=== PATIENT | male | born 1970 ===

== ENCOUNTER 2017-03-21 08:49 | Emergency (ER) | payer OTHER ==
[2017-03-21 09:02] VITALS: TEMP 98.9; O2SAT 98
--- NOTE | 2017-03-21 10:19 | C.PDOC ---
Time Seen by Provider: 03/21/17 09:27 Chief Complaint (Nursing): Back Pain History Per: Patient Onset/Duration Of Symptoms: Days (1) Current Symptoms Are (Timing): Still Present Quality Of Discomfort: "Pain" Severity: Moderate Previous Symptoms: Back Pain Associated Symptoms: None Exacerbating Factor(s): Movement Additional History Per: Prior Records Past Medical History Reviewed: Historical Data, Nursing Documentation, Vital Signs Vital Signs: Last Vital Signs Temp 98.9 F 03/21/17 09:00 Pulse 79 03/21/17 09:00 Resp 18 03/21/17 09:00 BP 120/78 03/21/17 09:00 Pulse Ox 98 03/21/17 09:00 - Medical History PMH: No Chronic Diseases Surgical History: No Surg Hx - [facility] Procedures CLOSURE SKIN & SUBCUTANEOUS NEC (12/01/12) Family History: States: Unknown Family Hx - Social History Hx Tobacco Use: No Hx Alcohol Use: No Hx Substance Use: No - Immunization History Hx Tetanus Toxoid Vaccination: No Hx Influenza Vaccination: No Hx Pneumococcal Vaccination: No Review Of Systems Except As Marked, All Systems Reviewed And Found Negative. Constitutional: Negative for: Fever, Weakness Cardiovascular: Negative for: Chest Pain Respiratory: Negative for: Shortness of Breath Gastrointestinal: Negative for: Vomiting, Abdominal Pain Genitourinary: Negative for: Dysuria, Incontinence, Hematuria Musculoskeletal: Positive for: Back Pain. Negative for: Neck Pain, Leg Pain Skin: Negative for: Rash Neurological: Negative for: Weakness, Numbness Physical Exam - Physical Exam Appears: Non-toxic, No Acute Distress Skin: Normal Color, Warm, Dry, No Rash Head: Atraumatic, Normacephalic Eye(s): bilateral: Normal Inspection, PERRL, EOMI Neck: Normal ROM, Supple Cardiovascular: Rhythm Regular Respiratory: Normal Breath Sounds, No Accessory Muscle Use Gastrointestinal/Abdominal: Soft, No Tenderness Back: No CVA Tenderness, No Vertebral Tenderness, Paraspinal Tenderness Extremity: Normal ROM Neurological/Psych: Oriented x3, Normal Motor, Normal Sensation ED Course And Treatment O2 Sat by Pulse Oximetry: 98 Pulse Ox Interpretation: Normal Reassessment Condition: Improved Disposition Counseled Patient/Family Regarding: Diagnosis, Need For Followup, Rx Given - Disposition Referrals: [facility] [Outside] Disposition: HOME/ ROUTINE Disposition Time: :20 Condition: IMPROVED Additional Instructions: Follow up in the clinic for further evaluation and treatment. Return to the ER if you develop weakness, numbness, abdominal pain, trouble urinating, worsening of symptoms or if you have any other concerns. Prescriptions: Cyclobenzaprine [Cyclobenzaprine HCl] 10 mg PO TID PRN #15 tab PRN Reason: Muscle Spasm Naproxen [Naprosyn] 1 tab PO BID PRN #20 tab PRN Reason: Pain Instructions: Back Pain (ED) Print Language: BULGARIAN - Clinical Impression Clinical Impression: Back strain
[2017-03-21 10:38] VITALS: BP 132/68; PULSE 78; RESP 16
== END 2017-03-21 10:36 | disposition home or self-care (01) ==
LOC: C.ER 08:49
DX: S29.012A Strain of muscle and tendon of back wall of thorax, initial encounter (principal); X50.0XXA Overexertion from strenuous movement or load, initial encounter; Y92.89 Other specified places as the place of occurrence of the external cause

== ENCOUNTER 2017-04-05 07:03 | Emergency (ER) | payer SELFPAY ==
[2017-04-05 07:21] VITALS: BP 127/95; PULSE 100; RESP 18; O2SAT 99
--- NOTE | 2017-04-05 07:35 | C.PDOC ---
History Of Present Illness 46 y/o M c no PMHx p/w fever, cough, body aches, NBNB vomiting that became suddenly worse yesterday. Denies diarrhea, abdominal pain, dyspnea. Time Seen by Provider: 04/05/17 07:26 Chief Complaint (Nursing): Cough, Cold, Congestion Past Medical History Vital Signs: Last Vital Signs Temp 101 F H 04/05/17 07:15 Pulse 100 H 04/05/17 07:15 Resp 18 04/05/17 07:15 BP 127/95 H 04/05/17 07:15 Pulse Ox 99 04/05/17 07:15 - [facility] Procedures CLOSURE SKIN & SUBCUTANEOUS NEC (12/01/12) Family History: States: Unknown Family Hx - Social History Hx Tobacco Use: No Hx Alcohol Use: No Hx Substance Use: No - Immunization History Hx Tetanus Toxoid Vaccination: No Hx Influenza Vaccination: No Hx Pneumococcal Vaccination: No Review Of Systems Except As Marked, All Systems Reviewed And Found Negative. Respiratory: Negative for: Shortness of Breath Gastrointestinal: Negative for: Diarrhea Physical Exam - Physical Exam Additional Physical Exam Comments: Gen: NAD Head: NC Eyes: No scleral icterus ENT: MMM Neck: No nuchal rigidity Chest: No tenderness CV: Regular rate Lungs: CTA b/l Abd: Soft, NT Back: No CVA tenderness Skin: No rash Extremities: No swelling Neuro: Alert, no focal deficit ED Course And Treatment O2 Sat by Pulse Oximetry: 99 Medical Decision Making Medical Decision Making: Start treatment for influenza, f/u PMD, return to ED for worsening fever, dyspnea, vomiting, abdominal pain, neck stiffness, or any other problem. Disposition - Disposition Referrals: [facility] at [facility] [Outside] Disposition: HOME/ ROUTINE Disposition Time: 07:35 Condition: STABLE Prescriptions: Ibuprofen [Motrin] 600 mg PO Q6 #25 tab Ondansetron ODT [Zofran ODT] 4 mg PO Q8 #12 odt Oseltamivir Phosphate [Tamiflu] 1 cap PO BID #9 capsule Instructions: Influenza (ED), Upper Respiratory Infection (ED) - Clinical Impression Clinical Impression: Influenza-like illness
[2017-04-05 08:57] VITALS: TEMP 99
== END 2017-04-05 08:52 | disposition home or self-care (01) ==
LOC: C.ER 07:03
DX: J11.1 Influenza due to unidentified influenza virus with other respiratory manifestations (principal)
CPT/HCPCS: 96372; 99283; J1885